=== PATIENT | male | born 1955 | race Caucasian/White ===

== ENCOUNTER → 2021-01-16 | Outpatient (CLI) | payer OTHER ==
[~2021-01-16] MED LIST: CHILDREN'S50 MG/1.24 PO; CIALIS5 MG PO; COZAAR 25 MG TA25 M2 PO; DILTIAZEM 24HR240 M1 PO; FERREX 150150 MG PO; HYDROCHLOROTHIA25 M1 PO; HYDROCODON-ACE1 EAC7 PO; IMDUR 60 MG TAB60 M1 PO; LAXATIVE PEG 3317 GM PO; LEVAQUIN 500 M500 M4 PO; LO-DOSE ASPIRIN81 M1 PO; NEXIUM40 MG PO; NICOTINE TRANSD14 M1 TD; NICOTINE TRANSD21 M1 TD; NITROSTAT0.4 MG SUBLING; PACERONE 200 M200 M1 PO; PRAVASTATIN SOD20 MG PO; TAZTIA PO; TOPROL XL50 MG PO; WELLBUTRIN SR150 MG PO; XANAX 0.25 MG0.25 MG PO; ZANTAC 150MG T150 M1 PO
== END ==
LOC: SJCVCIMAG
PROVIDERS: ATTEND Internal Medicine
DX: I48.91 Unspecified atrial fibrillation (principal); R06.02 Shortness of breath; I10 Essential (primary) hypertension; E78.5 Hyperlipidemia, unspecified; I42.9 Cardiomyopathy, unspecified; I65.29 Occlusion and stenosis of unspecified carotid artery; I25.10 Atherosclerotic heart disease of native coronary artery without angina pectoris; Z95.1 Presence of aortocoronary bypass graft; Z79.82 Long term (current) use of aspirin; Z79.899 Other long term (current) drug therapy

== ENCOUNTER → 2021-01-21 | Outpatient (CLI) | payer OTHER ==
--- NOTE | ~2021-01-21 | PFR/MVV ---
[facility] [address] PULMONARY FUNCTION MVV/REPORT Name: CLEO Jenkins Room #: REG [facility]#: [id number] Admission: 01/21/21 Attend Phys: Matt Dillard MD, [facility] Discharge: Date of : 53 Report #: [id number] THIS REPORT FOR: //name// COPIES FOR: AGE: 65 SEX/RACE: M/C >> SPIROMETRY: (BTPS) Height: 68 in cm Weight: 252 lbs kg Exam Date: 01/21/21 PRE-RX POST-RX PRED BEST %PRED BEST %PRED %CHG FVC LITERS . 4.17 . 3.79 . 91 . 3.38 . 81 . -11 FEV1 LITERS . 2.88 . 2.83 . 98 . 2.63 . 91 . -7 FEV1/FVC % . 70 . 75 . 107 . 78 . 111 . 4 RLS99-13% L/Sec . 2.74 . 2.08 . 76 . 2.43 . 89 . 17 PEF L/SEC . 7.93 . 9.07 . 114 . 8.88 . 112 . -2 FEF50/FIF50 UNITLESS . 3.88 . 4.34 . 112 . 5.15 . 133 . 19 MVV L/Min . 126 . 128 . 102 f 1/Min . . . >> LUNG VOLUMES: (BTPS) PRE-RX POST-RX PRED AVG %PRED AVG %PRED %CHG VC Liters . 4.17 . 3.82 . 92 . . . TLC Liters . 6.09 . 5.64 . 93 . . . RV Liters . 2.34 . 1.82 . 78 . . . RV/TLC % . 39 . 32 . 82 . . . FRC PL Liters . 2.85 . 2.13 . 75 . . . FRC N2 Liters . 2.85 . . . . . ERV Liters . 1.42 . 0.57 . 40 . . . IC Liters . 2.85 . 3.51 . 123 . . . >> DIFFUSION: DLCO ml/Min/mmHg . 26.1 . 20.2 . 77 . . . DL Paulette ml/Min/mmHg . 26.1 . 20.2 . 77 . . . DLCO/VA ml/Min/mmHg . 3.63 . 3.98 . 110 . . . VA Liters . 6.74 . 5.07 . 75 . . . [address] [address] PULMONARY FUNCTION MVV/REPORT Name: AliceCLEO [id number] Admission: 01/21/21 Attend Phys: Matt Dillard MD, [facility] Discharge: Date of : 53 Report #: [id number] COMMENTS: COMMENTS: >> RESISTANCE: PRE-RX PRED AVG %PRED Raw Total cmH20/L/Sec . . 5.09 . Raw Insp cmH20/L/Sec . . 2.22 . Raw Exp cmH20/L/Sec . . 3.58 . Raw cmH20/L/Sec . 1.60 . 3.86 . 230 Gaw L/Sec/cmH20 . 0.685 . 0.259 . 38 sRaw cmH20 Sec . 4.80 . 13.28 . 277 sGaw l/cmH20 Sec . 0.208 . 0.075 . 36 Vtq Liters . . 3.44 . # = OUTSIDE 95% CONFIDENCE INTERVAL CALIBRATION: PRED: 3.00 ACTUAL: EXP 3.01 INSP 3.02 [facility]-OL10-06 [facility]05 [id number] >> INTERPRETATION/IMPRESSION: DATE OF SERVICE: 01/21/2021 SPIROMETRY: FEV1 is 2.83 liters (98%), FVC is 3.79 liters (91% predicted). FEV1/FVC ratio is 75%. There is no significant response to bronchodilator therapy. Total lung capacity is 5.64 liters (93% predicted). Diffusing capacity is 77%. IMPRESSION: Pulmonary function studies are consistent with normal pulmonary function. There is no obstructive process. There is no significant response to bronchodilator therapy. Lung volumes and diffusing capacity are normal. By: Wilman Callahan MD /nt
== END ==
LOC: PUL 12:14
PROVIDERS: ATTEND Internal Medicine
DX: R06.02 Shortness of breath (principal); Z87.891 Personal history of nicotine dependence

== ENCOUNTER → 2021-01-29 | Outpatient (CLI) | payer OTHER | LOC: SJCVC 11:31 | PROVIDERS: ATTEND Internal Medicine | DX: I25.10 Atherosclerotic heart disease of native coronary artery without angina pectoris (principal); I65.23 Occlusion and stenosis of bilateral carotid arteries; I10 Essential (primary) hypertension; E78.5 Hyperlipidemia, unspecified; E78.00 Pure hypercholesterolemia, unspecified; Z88.8 Allergy status to other drugs, medicaments and biological substances; Z95.1 Presence of aortocoronary bypass graft; Z90.49 Acquired absence of other specified parts of digestive tract; Z79.82 Long term (current) use of aspirin; Z79.899 Other long term (current) drug therapy; Z87.891 Personal history of nicotine dependence ==